=== PATIENT | female | born 1945 | race Caucasian/White ===

== ENCOUNTER 2018-04-08 02:19 | Emergency (ER) | payer MEDICARE ==
[~2018-04-08] VITALS: Ht 157.5 cm; Wt 60.4 kg
[~2018-04-08 02:19] MED LIST: ASPIRIN81 MG PO; CIPROFLOXACN500 MG PO; CLONAZEPAM2 MG PO; CRESTOR20 MG PO; FLEXERIL PO; PERCOCET 5/325M1 TAB PO; PYRIDIUM200 MG PO; SERTRALINE100 MG PO; SYNTHROID88 MCG PO; TRAMADOL HCL50 MG PO; [UNRECOGNIZED DRUG - OTHER]
[2018-04-08 02:58] LABS: URINE BILIRUBIN - DIPSTICK NEGATIVE (NEGATIVE); URINE BLOOD DIPSTICK MODERATE (NEGATIVE); URINE COLOR YELLOW; URINE GLUCOSE - DIPSTICK NEGATIVE (NEGATIVE); URINE KETONE NEGATIVE (NEGATIVE); URINE PROTEIN - DIPSTICK 30 mg/dL (NEG-TRACE); URINE UROBILINOGEN - DIPSTICK 0.2 E.U./dL (0.2)
[2018-04-08 02:59] LABS: URINE LEUK ESTERASE LARGE (NEGATIVE); URINE NITRITE - DIPSTICK POSITIVE (Negative)
[2018-04-08] MEDS ORDERED: CIPROFLOXACN500 MG PO (03:08)
[2018-04-08] MEDS ORDERED: PYRIDIUM200 MG PO (03:08)
[2018-04-08 03:15] VITALS: BP 142/77
[2018-04-08 03:16] LABS: URINE BACTERIA MODERATE hpf; URINE SQUAMOUS EPITHELIAL CELL FEW EPI/hpf (0-FEW); URINE WBC 20-50 WBC/hpf (0-5)
== END 2018-04-08 03:15 | disposition home or self-care (01) ==
LOC: ED 02:19
PROVIDERS: Emergency Medicine
DX: N39.0 Urinary tract infection, site not specified (principal); B96.20 Unspecified Escherichia coli [E. coli] as the cause of diseases classified elsewhere

== ENCOUNTER 2018-05-06 10:12 | Emergency (ER) | payer MEDICARE ==
[~2018-05-06] VITALS: Ht 157.5 cm; Wt 65.4 kg
[2018-05-06 11:04] LABS: HEMOGLOBIN 13.4 g/dl (12.0-16.0); IMMATURE GRANULOCYTES 0.4 % (0.0-5.0); MEAN CELL VOLUME 91.3 fL CALC (80.0-100.0); MEAN CORPUSCULAR HGB 29.8 pG CALC (26.0-32.0); MEAN CORPUSCULAR HGB CONC 32.7 g/L CALC (32.0-36.0); NEUT# 3.73 thou/uL (2.00-7.15); RED BLOOD COUNT 4.49 mill/uL (4.20-5.60); RED CELL DISTRI WIDTH 13.2 % (11.5-15.5)
[2018-05-06 11:11] LABS: URINE BILIRUBIN - DIPSTICK NEGATIVE (NEGATIVE); URINE BLOOD DIPSTICK TRACE-LYSED (NEGATIVE); URINE COLOR YELLOW; URINE GLUCOSE - DIPSTICK NEGATIVE (NEGATIVE); URINE KETONE NEGATIVE (NEGATIVE); URINE LEUK ESTERASE NEGATIVE (NEGATIVE); URINE NITRITE - DIPSTICK NEGATIVE (Negative); URINE PROTEIN - DIPSTICK NEGATIVE (NEG-TRACE); URINE SPECIFIC GRAVITY <=1.005; URINE UROBILINOGEN - DIPSTICK 0.2 E.U./dL (0.2)
[2018-05-06] MEDS ORDERED: AMBIEN5 MG PO (11:15)
[2018-05-06 11:29] LABS: ALBUMIN 4.6 g/dL (3.2-5.0); ALKALINE PHOSPHATASE 76 u/l (38-126); ANION GAP 13 (6-22 (CALC)); BILIRUBIN, TOTAL 0.5 mg/dL (0.0-1.4); BUN 19 mg/dL (8-23); BUN/CREATININE RATIO 29 (12-20 (CALC)); CARBON DIOXIDE 25 mmol/l (22-30); CHLORIDE 106 mmol/l (95-108); CREATININE 0.6 mg/dL (0.5-1.0); GFR > 60 ML/MIN (>=60 (CALC)); GFR FOR AFR.AMER. > 60 ML/MIN (>=60 (CALC)); POTASSIUM 4.1 mmol/l (3.5-5.1); SGOT/AST 27 u/l (9-36); SODIUM 140 mmol/l (137-146); TOTAL PROTEIN 7.7 g/dL (6.3-8.2)
[2018-05-06] MEDS ORDERED: METRONIDAZOL500 MG PO (13:46)
[2018-05-06] MEDS ORDERED: LISINOPRIL20 MG PO (13:52)
[2018-05-06 14:04] LABS: C. DIFFICILE TOXIN A&B NEGATIVE (NEGATIVE)
[2018-05-06 14:35] VITALS: BP 156/72
== END 2018-05-06 14:35 | disposition home or self-care (01) ==
LOC: ED 10:12
PROVIDERS: Emergency Medicine
DX: R10.30 Lower abdominal pain, unspecified (principal); R19.7 Diarrhea, unspecified; I10 Essential (primary) hypertension; E03.9 Hypothyroidism, unspecified; Z87.440 Personal history of urinary (tract) infections
CPT/HCPCS: Q9967